=== PATIENT | male | born 1970 | race Two or more races ===

== ENCOUNTER 2020-02-20 15:18 | Inpatient (IN) | payer OTHER ==
[~2020-02-20] VITALS: Ht 172.7 cm; Wt 85.9 kg
[2020-02-20] MEDS ORDERED: MIDAZOLAM 1 MG/ML, 5ML ONE (17:52)
[2020-02-20] MEDS ORDERED: MIDAZOLAM HCL 50 MG in SODIUM CHLORIDE 0.9% 40 ML IV PRN (18:04)
[2020-02-20] MEDS ORDERED: LIDOCAINE-MPF 1%, 2ML ENDO PRN (18:30)
[2020-02-20] MEDS ORDERED: FENTANYL PF 100 MCG/2ML IVPush PRN (18:30)
[2020-02-20] MEDS ORDERED: LACTULOSE 20 GM/30 ML UDC NG PRN (18:30)
[2020-02-20] MEDS ORDERED: BISACODYL 10 MG SUPP PR PRN (18:30)
[2020-02-20] MEDS ORDERED: PROPOFOL 100 ML IV SCH (18:30)
[2020-02-20] MEDS ORDERED: PROPOFOL 100 ML IV PRN (18:30)
[2020-02-20] MEDS ORDERED: PLEASE ENTER ALLERGIES MC SCH (18:30)
[2020-02-20] MEDS ORDERED: SODIUM CHLORIDE 0.9% 1,000 ML IV SCH (18:30)
[2020-02-20] MEDS ORDERED: SENNA/DOCUSATE TABLET NG PRN (18:30)
[2020-02-20] MEDS ORDERED: PHARMACY MAY ADJ FOR RENAL FX MC SCH (18:30)
[2020-02-20] MEDS ORDERED: SENNA 176 MG/5 ML ORAL SOL NG PRN (18:30)
[2020-02-20] MEDS ORDERED: MIDAZOLAM 1 MG/ML, 5ML IVPush ONE (18:30)
[2020-02-20] MEDS ORDERED: PROPOFOL 100 ML IV ONE (18:34)
[2020-02-20 18:50] LABS: MEAN CORPUSCULAR HEMOGLOBIN 30.1 pg (27.5-34.5); MEAN CORPUSCULAR HGB CONC 34.2 g/dL (33.2-36.2); MEAN PLATELET VOLUME 7.8 fL (7.4-10.4); PLATELET COUNT 199 x10^3/uL (130-400); RED BLOOD COUNT 5.12 x10^6/uL (4.38-5.82); RED CELL DISTRIBUTION WIDTH 13.7 % (9.4-14.8)
[2020-02-20 18:53] LABS: MICROSCOPIC INDICATED
[2020-02-20] MEDS ORDERED: ENOXAPARIN 40 MG/0.4 ML SQ SCH (19:00)
[2020-02-20 19:01] LABS: CULTURE INDICATED? YES
[2020-02-20 19:15] LABS: MD YES
[2020-02-20 19:59] LABS: BAND#(MANUAL) 2.68 x10^3/uL; BANDS%(MANUAL) 22 % (0-7); LYMPH#(MANUAL) 0.49 x10^3/uL (1-3.4); LYMPHS% (MANUAL) 4 % (22-44); MONOS#(MANUAL) 0.24 x10^3/uL (0.3-2.7); MONOS% (MANUAL) 2 % (2-9); MYELOCYTES# (MANUAL) 0.12 x10^3/uL (0-0); MYELOCYTES% (MANUAL) 1 % (0-0); SEG#(MANUAL) 8.66 x10^3/uL (1.8-6.8); SEGS% (MANUAL) 71 % (42-75)
[2020-02-20 20:00] LABS: <PLATELET ESTIMATE> ADEQUATE; <PLT MORPHOLOGY> NORMAL PLT MORPH; <RBC MORPHOLOGY> NORMAL
[2020-02-20] MEDS: MIDAZOLAM HCL 50 MG in SODIUM CHLORIDE 0.9% 40 ML IV PRN (20:07)
[2020-02-20] MEDS: FAMOTIDINE 20 MG/2 ML IV SCH (20:08)
[2020-02-20] MEDS: HYDROXYCHLOROQUINE 200 MG TABLET PO SCH (20:08)
[2020-02-20] MEDS: AZITHROMYCIN 500 MG in SODIUM CHLORIDE 0.9% 250 ML IV SCH (20:09)
[2020-02-20] MEDS: CEFTRIAXONE PMX 1GM/50ML 50 ML IV SCH (22:00)
[2020-02-21] MEDS: MIDAZOLAM HCL 50 MG in SODIUM CHLORIDE 0.9% 40 ML IV PRN ×4 (01:16→17:01)
[2020-02-21 04:00] VITALS: BP 101/56
[2020-02-21 05:49] LABS: MEAN CORPUSCULAR HEMOGLOBIN 30.2 pg (27.5-34.5); MEAN CORPUSCULAR HGB CONC 33.8 g/dL (33.2-36.2); MEAN CORPUSCULAR VOLUME 89.3 fL (81-97); MEAN PLATELET VOLUME 7.8 fL (7.4-10.4); PLATELET COUNT 208 x10^3/uL (130-400); RED BLOOD COUNT 4.52 x10^6/uL (4.38-5.82); RED CELL DISTRIBUTION WIDTH 13.6 % (9.4-14.8)
[2020-02-21 05:52] LABS: ANION GAP 10 mmol/L (5-15); CALCIUM 8.2 mg/dL (8.5-10.1); CHLORIDE 108 mmol/L (98-107); CREATININE 3.28 mg/dL (0.7-1.3)
[2020-02-21 06:14] LABS: BASOPHILS # (AUTO) 0.02 x10^3/uL (0-0.1); BASOPHILS % (AUTO) 0 % (0-1); EOSINOPHILS % (AUTO) 0 % (1-7); LYMPHOCYTES # (AUTO) 0.45 x10^3/uL (1-3.4); LYMPHOCYTES % (AUTO) 5 % (22-44); MD SCAN; MONOCYTES # (AUTO) 0.18 x10^3/uL (0.2-0.8); MONOCYTES % (AUTO) 2 % (2-9); NEUTROPHILS # (AUTO) 8.45 x10^3/uL (1.8-6.8); NEUTROPHILS % (AUTO) 93 % (42-75)
[2020-02-21] MEDS: FAMOTIDINE 20 MG/2 ML IV SCH ×2 (06:18→22:18)
[2020-02-21] MEDS: HYDROXYCHLOROQUINE 200 MG TABLET PO SCH ×3 (08:41→22:18)
--- NOTE | 2020-02-21 10:52 | NUR ---
TF GOAL: with or without propofol: VITAL HIGH PROTEIN @ 70ML/HR
[2020-02-21 13:22] LABS: ALBUMIN 2.2 g/dL (3.4-5.0); BILIRUBIN, DIRECT 0.6 mg/dL (0.1-0.2)
[2020-02-21 13:25] LABS: BILIRUBIN,INDIRECT 0.2 mg/dL (0.0-2.0); BILIRUBIN,TOTAL 0.8 mg/dL (0.2-1.0); TOTAL PROTEIN 7.2 g/dL (6.4-8.2)
[2020-02-21] MEDS: FENTANYL PF 1,000 MCG in SODIUM CHLORIDE 0.9% 80 ML IV PRN (13:59)
[2020-02-21] MEDS: SODIUM CHLORIDE 0.9% 1,000 ML IV SCH (17:00)
[2020-02-21] MEDS ORDERED: SODIUM CHLORIDE 0.9% 1,000 ML IV SCH (18:30)
[2020-02-21] MEDS ORDERED: MIDAZOLAM HCL 50 MG in SODIUM CHLORIDE 0.9% 40 ML IV PRN (18:30)
[2020-02-21] MEDS: AZITHROMYCIN 500 MG in SODIUM CHLORIDE 0.9% 250 ML IV SCH (19:16)
[2020-02-21] MEDS ORDERED: ENOXAPARIN 30 MG/0.3 ML SQ SCH (21:00)
[2020-02-21] MEDS: CEFTRIAXONE PMX 1GM/50ML 50 ML IV SCH (22:18)
[2020-02-22] MEDS: SODIUM CHLORIDE 0.9% 1,000 ML IV SCH ×4 (01:10→21:18)
[2020-02-22] MEDS: MIDAZOLAM HCL 50 MG in SODIUM CHLORIDE 0.9% 40 ML IV PRN ×3 (01:50→23:06)
[2020-02-22 04:00] VITALS: BP 98/60
[2020-02-22 05:46] LABS: ANION GAP 6 mmol/L (5-15); BASOPHILS # (AUTO) 0.01 x10^3/uL (0-0.1); BASOPHILS % (AUTO) 0 % (0-1); CALCIUM 8.1 mg/dL (8.5-10.1); CHLORIDE 112 mmol/L (98-107); CREATININE 2.64 mg/dL (0.7-1.3); EOSINOPHILS # (AUTO) 0.01 x10^3/uL (0-0.4); EOSINOPHILS % (AUTO) 0 % (1-7); LYMPHOCYTES # (AUTO) 0.46 x10^3/uL (1-3.4); LYMPHOCYTES % (AUTO) 6 % (22-44); MD NO; MEAN CORPUSCULAR HEMOGLOBIN 30.2 pg (27.5-34.5); MEAN CORPUSCULAR HGB CONC 33.8 g/dL (33.2-36.2); MEAN CORPUSCULAR VOLUME 89.5 fL (81-97); MEAN PLATELET VOLUME 7.6 fL (7.4-10.4); MONOCYTES # (AUTO) 0.32 x10^3/uL (0.2-0.8); MONOCYTES % (AUTO) 4 % (2-9); NEUTROPHILS # (AUTO) 6.34 x10^3/uL (1.8-6.8); NEUTROPHILS % (AUTO) 89 % (42-75); PLATELET COUNT 231 x10^3/uL (130-400); RED BLOOD COUNT 4.02 x10^6/uL (4.38-5.82); RED CELL DISTRIBUTION WIDTH 14.1 % (9.4-14.8)
[2020-02-22] MEDS: FENTANYL PF 1,000 MCG in SODIUM CHLORIDE 0.9% 80 ML IV PRN (08:02)
[2020-02-22] MEDS: HYDROXYCHLOROQUINE 200 MG TABLET PO SCH ×3 (09:11→21:17)
[2020-02-22 10:50] LABS: MICROSCOPIC INDICATED
[2020-02-22 10:59] LABS: CULTURE INDICATED? YES
[2020-02-22] MEDS: ACETAMINOPHEN 650 MG/20.3 ML UDC PO/NG PRN (18:45)
[2020-02-22] MEDS: AZITHROMYCIN 500 MG in SODIUM CHLORIDE 0.9% 250 ML IV SCH (18:46)
[2020-02-22] MEDS: FAMOTIDINE 20 MG/2 ML IV SCH (21:17)
[2020-02-22] MEDS: ENOXAPARIN 40 MG/0.4 ML SQ SCH (21:17)
[2020-02-22] MEDS: CEFTRIAXONE PMX 1GM/50ML 50 ML IV SCH (21:17)
[2020-02-23] MEDS: ACETAMINOPHEN 650 MG/20.3 ML UDC PO/NG PRN ×4 (03:48→21:45)
[2020-02-23] MEDS: SODIUM CHLORIDE 0.9% 1,000 ML IV SCH (05:06)
[2020-02-23 05:40] VITALS: BP 106/71
[2020-02-23 07:41] LABS: MEAN CORPUSCULAR HEMOGLOBIN 29.8 pg (27.5-34.5); MEAN CORPUSCULAR HGB CONC 33.2 g/dL (33.2-36.2); MEAN CORPUSCULAR VOLUME 89.7 fL (81-97); MEAN PLATELET VOLUME 7.5 fL (7.4-10.4); PLATELET COUNT 233 x10^3/uL (130-400); RED BLOOD COUNT 3.68 x10^6/uL (4.38-5.82); RED CELL DISTRIBUTION WIDTH 14.2 % (9.4-14.8)
[2020-02-23 07:47] LABS: ANION GAP 5 mmol/L (5-15); CALCIUM 7.7 mg/dL (8.5-10.1); CHLORIDE 121 mmol/L (98-107)
[2020-02-23 07:48] LABS: CREATININE 1.96 mg/dL (0.7-1.3); TRIGLYCERIDES 245 mg/dL (50-200)
[2020-02-23 08:02] LABS: BASOPHILS # (AUTO) 0.01 x10^3/uL (0-0.1); BASOPHILS % (AUTO) 0 % (0-1); EOSINOPHILS # (AUTO) 0.04 x10^3/uL (0-0.4); EOSINOPHILS % (AUTO) 1 % (1-7); LYMPHOCYTES # (AUTO) 0.34 x10^3/uL (1-3.4); LYMPHOCYTES % (AUTO) 7 % (22-44); MD SCAN; MONOCYTES # (AUTO) 0.37 x10^3/uL (0.2-0.8); MONOCYTES % (AUTO) 8 % (2-9); NEUTROPHILS # (AUTO) 4.14 x10^3/uL (1.8-6.8); NEUTROPHILS % (AUTO) 84 % (42-75)
[2020-02-23] MEDS: HYDROXYCHLOROQUINE 200 MG TABLET PO SCH ×2 (09:22→20:52)
[2020-02-23] MEDS: MIDAZOLAM HCL 50 MG in SODIUM CHLORIDE 0.9% 40 ML IV PRN ×2 (09:34→18:08)
[2020-02-23] MEDS: SODIUM CHLORIDE 0.45% 1,000 ML IV SCH ×2 (09:34→22:45)
[2020-02-23] MEDS: FENTANYL PF 1,000 MCG in SODIUM CHLORIDE 0.9% 80 ML IV PRN (15:01)
[2020-02-23] MEDS: CEFTRIAXONE PMX 1GM/50ML 50 ML IV SCH (20:50)
[2020-02-23] MEDS: ENOXAPARIN 40 MG/0.4 ML SQ SCH (20:52)
[2020-02-23] MEDS: FAMOTIDINE 20 MG/2 ML IV SCH (20:52)
[2020-02-23] MEDS: AZITHROMYCIN 500 MG in SODIUM CHLORIDE 0.9% 250 ML IV SCH (22:45)
[2020-02-24] MEDS: MIDAZOLAM HCL 50 MG in SODIUM CHLORIDE 0.9% 40 ML IV PRN ×2 (02:09→06:17)
[2020-02-24] MEDS: FENTANYL PF 1,000 MCG in SODIUM CHLORIDE 0.9% 80 ML IV PRN ×2 (05:30→22:31)
[2020-02-24 05:34] LABS: ANION GAP 6 mmol/L (5-15); BASOPHILS # (AUTO) 0.03 x10^3/uL (0-0.1); BASOPHILS % (AUTO) 0 % (0-1); CALCIUM 8.1 mg/dL (8.5-10.1); CHLORIDE 121 mmol/L (98-107); CREATININE 1.64 mg/dL (0.7-1.3); EOSINOPHILS # (AUTO) 0.07 x10^3/uL (0-0.4); EOSINOPHILS % (AUTO) 1 % (1-7); LYMPHOCYTES # (AUTO) 0.56 x10^3/uL (1-3.4); LYMPHOCYTES % (AUTO) 7 % (22-44); MD NO; MEAN CORPUSCULAR HEMOGLOBIN 30.2 pg (27.5-34.5); MEAN PLATELET VOLUME 7.7 fL (7.4-10.4); MONOCYTES # (AUTO) 0.49 x10^3/uL (0.2-0.8); MONOCYTES % (AUTO) 7 % (2-9); NEUTROPHILS # (AUTO) 6.48 x10^3/uL (1.8-6.8); NEUTROPHILS % (AUTO) 85 % (42-75); PLATELET COUNT 254 x10^3/uL (130-400); RED BLOOD COUNT 3.95 x10^6/uL (4.38-5.82); RED CELL DISTRIBUTION WIDTH 14.1 % (9.4-14.8)
[2020-02-24] MEDS ORDERED: FUROSEMIDE 40 MG/4 ML IV ONE (07:00)
[2020-02-24] MEDS ORDERED: POTASSIUM CHLORIDE 10% 20 MEQ/15 ML UDC PO ONE (07:00)
[2020-02-24] MEDS: HYDROXYCHLOROQUINE 200 MG TABLET PO SCH ×3 (08:22→20:55)
[2020-02-24] MEDS: ACETAMINOPHEN 650 MG/20.3 ML UDC PO/NG PRN ×2 (11:25→22:21)
[2020-02-24] MEDS: SCOPOLAMINE 1MG PATCH TD SCH (13:23)
[2020-02-24] MEDS: POLYETHYLENE GLYCOL 17 GM PACKET NG SCH (13:23)
[2020-02-24] MEDS: FAMOTIDINE 20 MG/2 ML IV SCH (20:55)
[2020-02-24] MEDS: CEFTRIAXONE PMX 1GM/50ML 50 ML IV SCH (20:55)
[2020-02-24] MEDS: ENOXAPARIN 40 MG/0.4 ML SQ SCH (20:55)
[2020-02-24] MEDS: AZITHROMYCIN 500 MG in SODIUM CHLORIDE 0.9% 250 ML IV SCH (22:26)
[2020-02-24] MEDS: DEXMEDETOMIDINE 400 MCG in SODIUM CHLORIDE 0.9% 96 ML IV PRN (22:27)
[2020-02-25] MEDS: ACETAMINOPHEN 650 MG/20.3 ML UDC PO/NG PRN ×3 (04:50→20:07)
[2020-02-25] MEDS: DEXMEDETOMIDINE 400 MCG in SODIUM CHLORIDE 0.9% 96 ML IV PRN ×3 (04:50→19:53)
[2020-02-25 06:10] LABS: ANION GAP 6 mmol/L (5-15); CALCIUM 8.3 mg/dL (8.5-10.1); CHLORIDE 119 mmol/L (98-107)
[2020-02-25 06:11] LABS: CREATININE 1.58 mg/dL (0.7-1.3)
[2020-02-25 06:16] LABS: MEAN CORPUSCULAR HGB CONC 33.4 g/dL (33.2-36.2); MEAN CORPUSCULAR VOLUME 89.8 fL (81-97); MEAN PLATELET VOLUME 7.5 fL (7.4-10.4); PLATELET COUNT 264 x10^3/uL (130-400); RED BLOOD COUNT 3.44 x10^6/uL (4.38-5.82); RED CELL DISTRIBUTION WIDTH 14.1 % (9.4-14.8)
[2020-02-25 06:44] LABS: BASOPHILS # (AUTO) 0.05 x10^3/uL (0-0.1); BASOPHILS % (AUTO) 1 % (0-1); EOSINOPHILS # (AUTO) 0.16 x10^3/uL (0-0.4); EOSINOPHILS % (AUTO) 2 % (1-7); LYMPHOCYTES # (AUTO) 0.61 x10^3/uL (1-3.4); LYMPHOCYTES % (AUTO) 9 % (22-44); MD SCAN; MONOCYTES # (AUTO) 0.51 x10^3/uL (0.2-0.8); MONOCYTES % (AUTO) 8 % (2-9); NEUTROPHILS # (AUTO) 5.28 x10^3/uL (1.8-6.8); NEUTROPHILS % (AUTO) 80 % (42-75)
[2020-02-25] MEDS: HYDROXYCHLOROQUINE 200 MG TABLET PO SCH ×3 (08:14→21:49)
[2020-02-25] MEDS: POLYETHYLENE GLYCOL 17 GM PACKET NG SCH (08:14)
[2020-02-25] MEDS: FENTANYL PF 1,000 MCG in SODIUM CHLORIDE 0.9% 80 ML IV PRN (09:16)
[2020-02-25] MEDS: METHYLNALTREXONE 12 MG/0.6 ML SYR SQ SCH (12:05)
[2020-02-25] MEDS: CEFTRIAXONE PMX 1GM/50ML 50 ML IV SCH (21:31)
[2020-02-25] MEDS: FAMOTIDINE 20 MG/2 ML IV SCH (21:48)
[2020-02-25] MEDS: ENOXAPARIN 40 MG/0.4 ML SQ SCH (21:49)
[2020-02-25] MEDS: AZITHROMYCIN 500 MG in SODIUM CHLORIDE 0.9% 250 ML IV SCH (22:08)
[2020-02-26] MEDS: FENTANYL PF 1,000 MCG in SODIUM CHLORIDE 0.9% 80 ML IV PRN ×2 (00:24→15:54)
[2020-02-26] MEDS: ACETAMINOPHEN 650 MG/20.3 ML UDC PO/NG PRN (00:27)
[2020-02-26] MEDS: DEXMEDETOMIDINE 400 MCG in SODIUM CHLORIDE 0.9% 96 ML IV PRN ×4 (00:32→16:56)
[2020-02-26 04:54] LABS: BASOPHILS # (AUTO) 0.07 x10^3/uL (0-0.1); BASOPHILS % (AUTO) 1 % (0-1); EOSINOPHILS % (AUTO) 4 % (1-7); LYMPHOCYTES # (AUTO) 0.71 x10^3/uL (1-3.4); LYMPHOCYTES % (AUTO) 12 % (22-44); MD NO; MEAN CORPUSCULAR HEMOGLOBIN 29.8 pg (27.5-34.5); MEAN CORPUSCULAR HGB CONC 33.4 g/dL (33.2-36.2); MEAN CORPUSCULAR VOLUME 89.1 fL (81-97); MEAN PLATELET VOLUME 7.6 fL (7.4-10.4); MONOCYTES # (AUTO) 0.45 x10^3/uL (0.2-0.8); MONOCYTES % (AUTO) 8 % (2-9); NEUTROPHILS # (AUTO) 4.35 x10^3/uL (1.8-6.8); NEUTROPHILS % (AUTO) 75 % (42-75); PLATELET COUNT 267 x10^3/uL (130-400); RED BLOOD COUNT 3.78 x10^6/uL (4.38-5.82); RED CELL DISTRIBUTION WIDTH 13.9 % (9.4-14.8)
[2020-02-26 05:09] LABS: ANION GAP 8 mmol/L (5-15); CALCIUM 8.5 mg/dL (8.5-10.1); CHLORIDE 119 mmol/L (98-107); CREATININE 1.37 mg/dL (0.7-1.3); TRIGLYCERIDES 131 mg/dL (50-200)
[2020-02-26] MEDS: FUROSEMIDE 20 MG/2 ML IV SCH ×2 (09:14→21:31)
[2020-02-26] MEDS: HYDROXYCHLOROQUINE 200 MG TABLET PO SCH ×3 (09:14→21:32)
[2020-02-26] MEDS: POLYETHYLENE GLYCOL 17 GM PACKET NG SCH (09:15)
[2020-02-26] MEDS: ARTIFICIAL TEARS 15 DROP/ML BOTTLE EACHEYE PRN (15:20)
[2020-02-26] MEDS: ZINC SULFATE 220 MG CAPSULE PO SCH (15:20)
[2020-02-26] MEDS: FAMOTIDINE 20 MG/2 ML IV SCH (21:30)
[2020-02-26] MEDS: ENOXAPARIN 40 MG/0.4 ML SQ SCH (21:31)
[2020-02-26] MEDS: CEFTRIAXONE PMX 1GM/50ML 50 ML IV SCH (21:32)
[2020-02-26] MEDS: MIDAZOLAM HCL 50 MG in SODIUM CHLORIDE 0.9% 40 ML IV PRN (22:45)
[2020-02-27] MEDS: DEXMEDETOMIDINE 400 MCG in SODIUM CHLORIDE 0.9% 96 ML IV PRN ×4 (05:27→21:43)
[2020-02-27] MEDS: FENTANYL PF 1,000 MCG in SODIUM CHLORIDE 0.9% 80 ML IV PRN ×2 (05:27→19:47)
[2020-02-27 05:54] LABS: BASOPHILS # (AUTO) 0.02 x10^3/uL (0-0.1); BASOPHILS % (AUTO) 0 % (0-1); EOSINOPHILS # (AUTO) 0.17 x10^3/uL (0-0.4); EOSINOPHILS % (AUTO) 3 % (1-7); LYMPHOCYTES # (AUTO) 0.83 x10^3/uL (1-3.4); LYMPHOCYTES % (AUTO) 13 % (22-44); MD NO; MEAN CORPUSCULAR HGB CONC 33.7 g/dL (33.2-36.2); MEAN CORPUSCULAR VOLUME 89.3 fL (81-97); MEAN PLATELET VOLUME 7.9 fL (7.4-10.4); MONOCYTES % (AUTO) 8 % (2-9); NEUTROPHILS # (AUTO) 4.93 x10^3/uL (1.8-6.8); NEUTROPHILS % (AUTO) 77 % (42-75); PLATELET COUNT 295 x10^3/uL (130-400); RED BLOOD COUNT 4.01 x10^6/uL (4.38-5.82); RED CELL DISTRIBUTION WIDTH 13.9 % (9.4-14.8)
[2020-02-27 06:00] LABS: CHLORIDE 111 mmol/L (98-107)
[2020-02-27 06:08] LABS: ANION GAP 7 mmol/L (5-15); CALCIUM 8.8 mg/dL (8.5-10.1); CREATININE 1.39 mg/dL (0.7-1.3)
[2020-02-27] MEDS: FUROSEMIDE 20 MG/2 ML IV SCH ×2 (09:34→21:44)
[2020-02-27] MEDS: HYDROXYCHLOROQUINE 200 MG TABLET PO SCH ×3 (09:34→21:44)
[2020-02-27] MEDS: FAMOTIDINE 20 MG/2 ML IV SCH ×2 (09:35→21:44)
[2020-02-27] MEDS: POLYETHYLENE GLYCOL 17 GM PACKET NG SCH (09:35)
[2020-02-27] MEDS: METHYLNALTREXONE 12 MG/0.6 ML SYR SQ SCH (09:35)
[2020-02-27] MEDS ORDERED: FUROSEMIDE 20 MG/2 ML IV ONE (11:00)
[2020-02-27] MEDS: ZINC SULFATE 220 MG CAPSULE PO SCH (12:06)
[2020-02-27] MEDS: SCOPOLAMINE 1MG PATCH TD SCH (12:07)
[2020-02-27] MEDS ORDERED: LORazepam 2 MG/ML, 1ML IVPush PRN (13:30)
[2020-02-27] MEDS: POTASSIUM CHLORIDE 10% 20 MEQ/15 ML UDC PO SCH (17:45)
[2020-02-27] MEDS: ENOXAPARIN 40 MG/0.4 ML SQ SCH (21:44)
[2020-02-27] MEDS: MIDAZOLAM HCL 50 MG in SODIUM CHLORIDE 0.9% 40 ML IV PRN (21:45)
[2020-02-27] MEDS: CEFTRIAXONE PMX 1GM/50ML 50 ML IV SCH (23:01)
[2020-02-28] MEDS: DEXMEDETOMIDINE 400 MCG in SODIUM CHLORIDE 0.9% 96 ML IV PRN (03:29)
[2020-02-28] MEDS: ARTIFICIAL TEARS 15 DROP/ML BOTTLE EACHEYE PRN (03:33)
[2020-02-28] MEDS: FENTANYL PF 1,000 MCG in SODIUM CHLORIDE 0.9% 80 ML IV PRN (06:11)
[2020-02-28 06:27] LABS: ANION GAP 5 mmol/L (5-15); CALCIUM 8.8 mg/dL (8.5-10.1); CHLORIDE 111 mmol/L (98-107); CREATININE 1.53 mg/dL (0.7-1.3)
[2020-02-28 06:38] LABS: BASOPHILS # (AUTO) 0.01 x10^3/uL (0-0.1); BASOPHILS % (AUTO) 0 % (0-1); EOSINOPHILS # (AUTO) 0.16 x10^3/uL (0-0.4); EOSINOPHILS % (AUTO) 2 % (1-7); LYMPHOCYTES # (AUTO) 0.68 x10^3/uL (1-3.4); LYMPHOCYTES % (AUTO) 8 % (22-44); MD NO; MEAN CORPUSCULAR HEMOGLOBIN 30.2 pg (27.5-34.5); MEAN CORPUSCULAR HGB CONC 33.7 g/dL (33.2-36.2); MEAN CORPUSCULAR VOLUME 89.5 fL (81-97); MONOCYTES # (AUTO) 0.69 x10^3/uL (0.2-0.8); MONOCYTES % (AUTO) 8 % (2-9); NEUTROPHILS # (AUTO) 7.21 x10^3/uL (1.8-6.8); NEUTROPHILS % (AUTO) 82 % (42-75); PLATELET COUNT 248 x10^3/uL (130-400); RED CELL DISTRIBUTION WIDTH 13.7 % (9.4-14.8)
[2020-02-28] MEDS: FUROSEMIDE 20 MG/2 ML IV SCH (09:00)
[2020-02-28] MEDS: POLYETHYLENE GLYCOL 17 GM PACKET NG SCH (09:00)
[2020-02-28] MEDS: FAMOTIDINE 20 MG/2 ML IV SCH ×2 (09:00→21:15)
[2020-02-28] MEDS: ZINC SULFATE 220 MG CAPSULE PO SCH (09:00)
[2020-02-28] MEDS: HYDROXYCHLOROQUINE 200 MG TABLET PO SCH ×3 (09:00→18:13)
[2020-02-28] MEDS: POTASSIUM CHLORIDE 10% 20 MEQ/15 ML UDC PO SCH (09:00)
[2020-02-28] MEDS: DEXTROSE 5% 1,000 ML IV SCH (18:09)
[2020-02-28] MEDS: ENOXAPARIN 40 MG/0.4 ML SQ SCH (21:14)
[2020-02-28] MEDS: CEFTRIAXONE PMX 1GM/50ML 50 ML IV SCH (21:17)
[2020-02-29 06:08] LABS: BASOPHILS # (AUTO) 0.02 x10^3/uL (0-0.1); BASOPHILS % (AUTO) 0 % (0-1); EOSINOPHILS # (AUTO) 0.13 x10^3/uL (0-0.4); EOSINOPHILS % (AUTO) 2 % (1-7); LYMPHOCYTES # (AUTO) 0.74 x10^3/uL (1-3.4); LYMPHOCYTES % (AUTO) 9 % (22-44); MD NO; MEAN CORPUSCULAR HEMOGLOBIN 30.4 pg (27.5-34.5); MEAN CORPUSCULAR HGB CONC 33.8 g/dL (33.2-36.2); MEAN CORPUSCULAR VOLUME 89.9 fL (81-97); MONOCYTES # (AUTO) 0.55 x10^3/uL (0.2-0.8); MONOCYTES % (AUTO) 7 % (2-9); NEUTROPHILS # (AUTO) 6.69 x10^3/uL (1.8-6.8); NEUTROPHILS % (AUTO) 82 % (42-75); PLATELET COUNT 238 x10^3/uL (130-400); RED CELL DISTRIBUTION WIDTH 13.6 % (9.4-14.8)
[2020-02-29 06:12] LABS: ANION GAP 7 mmol/L (5-15); CALCIUM 8.7 mg/dL (8.5-10.1); CHLORIDE 113 mmol/L (98-107); CREATININE 1.34 mg/dL (0.7-1.3); TRIGLYCERIDES 256 mg/dL (50-200)
[2020-02-29] MEDS: POLYETHYLENE GLYCOL 17 GM PACKET NG SCH (08:45)
[2020-02-29] MEDS ORDERED: FUROSEMIDE 20 MG/2 ML IV ONE (10:30)
[2020-02-29] MEDS: ZINC SULFATE 220 MG CAPSULE PO SCH (11:22)
[2020-02-29] MEDS: FAMOTIDINE 20 MG/2 ML IV SCH ×2 (11:22→20:28)
[2020-02-29] MEDS: HYDROXYCHLOROQUINE 200 MG TABLET PO SCH ×3 (11:22→20:28)
[2020-02-29] MEDS: POTASSIUM CHLORIDE 10% 20 MEQ/15 ML UDC PO SCH (11:24)
--- NOTE | 2020-02-29 12:05 | NUR ---
REC: MARCO A/ NTL -Meds floated Addendum: 02/29/20 at [address] Amended: Links added.
[2020-02-29] MEDS: DEXTROSE 5% 1,000 ML IV SCH (12:52)
[2020-02-29] MEDS: ENOXAPARIN 40 MG/0.4 ML SQ SCH (20:28)
[2020-02-29] MEDS: CEFTRIAXONE PMX 1GM/50ML 50 ML IV SCH (20:28)
[2020-02-29] MEDS: ARTIFICIAL TEARS 15 DROP/ML BOTTLE EACHEYE PRN (20:35)
[2020-02-29 22:42] VITALS: BP 136/78
[2020-03-01 05:51] LABS: BASOPHILS # (AUTO) 0.04 x10^3/uL (0-0.1); BASOPHILS % (AUTO) 0 % (0-1); EOSINOPHILS % (AUTO) 2 % (1-7); LYMPHOCYTES # (AUTO) 0.77 x10^3/uL (1-3.4); LYMPHOCYTES % (AUTO) 8 % (22-44); MD NO; MEAN CORPUSCULAR HGB CONC 33.5 g/dL (33.2-36.2); MEAN CORPUSCULAR VOLUME 89.3 fL (81-97); MEAN PLATELET VOLUME 8.3 fL (7.4-10.4); MONOCYTES # (AUTO) 0.46 x10^3/uL (0.2-0.8); MONOCYTES % (AUTO) 5 % (2-9); NEUTROPHILS # (AUTO) 7.75 x10^3/uL (1.8-6.8); NEUTROPHILS % (AUTO) 84 % (42-75); PLATELET COUNT 223 x10^3/uL (130-400); RED BLOOD COUNT 4.09 x10^6/uL (4.38-5.82); RED CELL DISTRIBUTION WIDTH 13.4 % (9.4-14.8)
[2020-03-01 05:57] LABS: ANION GAP 7 mmol/L (5-15); CALCIUM 8.8 mg/dL (8.5-10.1); CHLORIDE 113 mmol/L (98-107)
[2020-03-01] MEDS ORDERED: ASCORBIC ACID 500 MG TABLET ONE (07:56)
[2020-03-01] MEDS: ZINC SULFATE 220 MG CAPSULE PO SCH (08:29)
[2020-03-01] MEDS: ASCORBIC ACID 500 MG TABLET PO SCH ×2 (08:29→15:56)
[2020-03-01] MEDS: HYDROXYCHLOROQUINE 200 MG TABLET PO SCH ×3 (08:29→21:12)
[2020-03-01] MEDS: FAMOTIDINE 20 MG/2 ML IV SCH (08:29)
[2020-03-01 08:47] VITALS: BP 137/83
[2020-03-01] MEDS: DEXTROSE 5% 1,000 ML IV SCH (08:52)
[2020-03-01] MEDS: POLYETHYLENE GLYCOL 17 GM PACKET NG SCH (08:53)
[2020-03-01] MEDS ORDERED: POTASSIUM CHLORIDE 20 MEQ TAB.ER.PRT PO ONE (11:00)
[2020-03-01] MEDS: FUROSEMIDE 40 MG/4 ML IV SCH (11:44)
[2020-03-01 12:27] VITALS: BP 116/79
[2020-03-01] MEDS: ENOXAPARIN 40 MG/0.4 ML SQ SCH (21:12)
[2020-03-01] MEDS: FAMOTIDINE 20 MG TABLET PO SCH (21:13)
[2020-03-01 21:42] VITALS: BP 125/86
[2020-03-02 02:20] VITALS: BP 113/78
[2020-03-02] MEDS: DEXTROSE 5% 1,000 ML IV SCH (05:00)
[2020-03-02 05:49] LABS: BASOPHILS # (AUTO) 0.02 x10^3/uL (0-0.1); BASOPHILS % (AUTO) 0 % (0-1); EOSINOPHILS # (AUTO) 0.24 x10^3/uL (0-0.4); EOSINOPHILS % (AUTO) 3 % (1-7); LYMPHOCYTES # (AUTO) 0.97 x10^3/uL (1-3.4); LYMPHOCYTES % (AUTO) 12 % (22-44); MD NO; MEAN CORPUSCULAR HEMOGLOBIN 29.8 pg (27.5-34.5); MEAN CORPUSCULAR HGB CONC 33.9 g/dL (33.2-36.2); MEAN CORPUSCULAR VOLUME 87.9 fL (81-97); MEAN PLATELET VOLUME 8.3 fL (7.4-10.4); MONOCYTES # (AUTO) 0.55 x10^3/uL (0.2-0.8); MONOCYTES % (AUTO) 7 % (2-9); NEUTROPHILS # (AUTO) 6.48 x10^3/uL (1.8-6.8); NEUTROPHILS % (AUTO) 79 % (42-75); PLATELET COUNT 201 x10^3/uL (130-400); RED BLOOD COUNT 4.24 x10^6/uL (4.38-5.82); RED CELL DISTRIBUTION WIDTH 13.3 % (9.4-14.8)
[2020-03-02 05:55] LABS: ANION GAP 7 mmol/L (5-15); CALCIUM 9.1 mg/dL (8.5-10.1); CHLORIDE 108 mmol/L (98-107); CREATININE 1.35 mg/dL (0.7-1.3)
[2020-03-02 07:41] VITALS: BP 110/75
[2020-03-02] MEDS: ASCORBIC ACID 500 MG TABLET PO SCH (08:20)
[2020-03-02] MEDS: FUROSEMIDE 40 MG/4 ML IV SCH (08:20)
[2020-03-02] MEDS: FAMOTIDINE 20 MG TABLET PO SCH (08:20)
[2020-03-02] MEDS: HYDROXYCHLOROQUINE 200 MG TABLET PO SCH (08:20)
[2020-03-02] MEDS: ZINC SULFATE 220 MG CAPSULE PO SCH (08:20)
[2020-03-02] MEDS: POLYETHYLENE GLYCOL 17 GM PACKET NG SCH (08:20)
[2020-03-02] MEDS ORDERED: CHOLECALCIFEROL 5,000u TAB PO SCH (09:00)
[2020-03-02] MEDS ORDERED: CHOL500045 PO (11:29)
[2020-03-02] MEDS ORDERED: ZINC220C7 PO (11:29)
[2020-03-02] MEDS ORDERED: ASCO500T6 PO (11:29)
[2020-03-02] MEDS ORDERED: FUROSEMIDE 20 MG/2 ML IV ONE (11:30)
[2020-03-02] MEDS ORDERED: FUROSEMIDE 40 MG/4 ML ONE (11:35)
[2020-03-02 12:41] VITALS: BP 129/82
== END 2020-03-02 15:50 | disposition home or self-care (01) | DRG 207 ==
LOC: ICU 17:44 → 3WST 02-29 22:18
PROVIDERS: ADMIT Internal Medicine; ATTEND Hospitalist
PROC: 0T9B70Z Drainage of Bladder with Drainage Device, Via Natural or Artificial Opening (ICD-10-PCS; 2020-02-20)
PROC: 5A1955Z Respiratory Ventilation, Greater than 96 Consecutive Hours (ICD-10-PCS; principal; 2020-02-21)
DX: U07.1 COVID-19 (principal); J12.89 Other viral pneumonia; J96.01 Acute respiratory failure with hypoxia; N17.0 Acute kidney failure with tubular necrosis; E87.0 Hyperosmolality and hypernatremia; F10.239 Alcohol dependence with withdrawal, unspecified; Z99.11 Dependence on respirator [ventilator] status; E87.2 Acidosis; K59.00 Constipation, unspecified; D72.810 Lymphocytopenia; R31.29 Other microscopic hematuria
CPT/HCPCS: 36415; 36600; 74018; 84145; J3490; 71045; 76770; 80048; 80076; 81001; 82570; 82803; 83615; 83735; 84300; 84478; 85025; 85379; 86140; 87040; 87070; 87081; 87086; 87205; 94002; 94003; G0378; J0456; J0696; J1650; J1940; J2250; J2704; J3010; J7070; J7030; J7050